=== PATIENT | female | born 1950 | race Caucasian/White ===

== ENCOUNTER → 2016-06-17 | Outpatient (CLI) | payer MEDICARE, BC ==
--- NOTE | 2016-06-17 17:57 | WOMENS IMAGING REPORT ---
EXAM DESCRIPTION: 3D SCREENING MAMMO BILAT COMPLETED DATE/TIME: 06/17/2016 11:13 am REASON FOR STUDY: BILAT SCREENING MAMMO 3D Z12.31 ENCNTR SCREEN MAMMOGRAM FOR MALIGNANT NEOPLASM OF [place] COMPARISON: Multiple since 2008 TECHNIQUE: Standard craniocaudal and mediolateral oblique views of each breast recorded using digita l acquisition and breast tomosynthesis. LIMITATIONS: None. FINDINGS: No masses, calcifications or architectural distortion. No areas of suspicion. Read with the assistance of CAD. .[facility] - R2 Cenova Version 1.3 .[facility] - R2 Cenova Version 1.3 .[facility] Imaging - R2 Cenova Version 2.4 .[facility] [place] - R2 Cenova Version 2.4 .[facility] - R2 White Lead Filterer Version 9.2 BREAST DENSITY: b. There are scattered areas of fibroglandular density. BIRAD: 1 NEGATIVE RECOMMENDATION: ROUTINE SCREENING COMMENT: PATIENT NOTIFIED BY LETTER. The [employer] recommends an annual screening mammogram for women aged 40 years or over. Each patient will receive a reminder prior to the anniversary date of her mammogram. The [employer] (ACR) has developed recommendations for screening MRI of the breast s in certain patient populations, to be used in conjunction with mammography. Breast MRI surveillanc e may be appropriate for women with more than 20% lifetime risk of developing breast cancer as deter mined by genetic testing, significant family history of the disease, or history of mantle radiation f or Hodgkins Disease. ACR Practice Guidelines 2008. DBT Technology DBT is a type of tomographic mammography. With conventional mammography, overlapping breast tissue ma y make lesions difficult to detect, even with good compression. DBT uses an x-ray tube that rotates a round the breast, taking images at different angles. These images are then combined to create thin sl ices of the breast that the radiologist can view as a 3D reconstruction. The [employer] unit can perform full-field digital mammograms (2D imaging); or DBT (3D imaging); or both, in a combination mode that quickly performs both the mammogram and the tomosynthesis scan while the breast is still compressed. PQRS 6045F: Fluoroscopic imaging is not utilized for breast tomosynthesis. TECHNICAL DOCUMENTATION: FINDING NUMBER: (1) ASSESSMENT: (1) JOB ID: [id number] [employer]- All Rights Reserved
== END ==
LOC: WI 10:54
PROVIDERS: ATTEND Nurse Practitioner Family
DX: Z12.31 Encounter for screening mammogram for malignant neoplasm of breast (principal)
CPT/HCPCS: 77063; G0202; 77067

== ENCOUNTER → 2017-08-04 | Outpatient (CLI) | payer MEDICARE, BC ==
--- NOTE | 2017-08-07 10:23 | WOMENS IMAGING REPORT ---
EXAM DESCRIPTION: 3D SCREENING MAMMO BILAT COMPLETED DATE/TIME: 08/04/2017 10:52 am REASON FOR STUDY: ROUTINE SCREENING; Z12.31 Z12.31 ENCNTR SCREEN MAMMOGRAM FOR MALIGNANT NEOPLASM O F [place] COMPARISON: Digital tomosynthesis bilateral screening mammogram dated 06/17/2016 and digital bilateral screening mammograms dated 09/18/2014 and 11/23/2012. TECHNIQUE: Standard craniocaudal and mediolateral oblique views of each breast recorded using digita l acquisition and breast tomosynthesis. LIMITATIONS: None. FINDINGS: RIGHT BREAST MASSES: No suspicious masses. CALCIFICATIONS: No new or suspicious calcifications. ARCHITECTURAL DISTORTION: None. DEVELOPING DENSITY: None. ASYMMETRY: None noted. OTHER: No other significant findings. LEFT BREAST MASSES: No suspicious masses. CALCIFICATIONS: No new or suspicious calcifications. ARCHITECTURAL DISTORTION: None. DEVELOPING DENSITY: None. ASYMMETRY: Asymmetry in the mid breast, best seen on the LCC view, mid-posterior depth. OTHER: No other significant findings. Read with the assistance of CAD. .[facility] - R2 Cenova Version 1.3 .[facility] Imaging - R2 Cenova Version 1.3 .[facility] Imaging - R2 Cenova Version 2.4 .[facility] - R2 Cenova Version 2.4 .[facility] - R2 Powder Nipper Version 9.2 IMPRESSION: 1 Left breast asymmetry. BREAST DENSITY: b. There are scattered areas of fibroglandular density. BIRAD: 0 Incomplete: Needs Additional Imaging Evaluation and/or prior Mammograms for Comparison. RECOMMENDATION: RECOMMENDED FOLLOW-UP: 1. Left breast ultrasound. The patient will be contacted for additional imaging. COMMENT: The patient has been notified of the results by letter per SA requirements. Additional no tification policies are in place for contacting patient with suspicious or incomplete findings. Quality ID #[id number]: The [employer] recommends an annual screening mammogram for women aged 40 years or over. This facility utilizes a reminder system to ensure that all patients receive reminder letters, and/or direct phone calls for appointments. This includes reminders for routine scr eening mammograms, diagnostic mammograms, or other Breast Imaging Interventions when appropriate. Th is patient will be placed in the appropriate reminder system. The [employer] (ACR) has developed recommendations for screening MRI of the breast s in certain patient populations, to be used in conjunction with mammography. Breast MRI surveillanc e may be appropriate for women with more than 20% lifetime risk of developing breast cancer as deter mined by genetic testing, significant family history of the disease, or history of mantle radiation f or Hodgkins Disease. ACR Practice Guidelines 2008. DBT Technology DBT is a type of tomographic mammography. With conventional mammography, overlapping breast tissue ma y make lesions difficult to detect, even with good compression. DBT uses an x-ray tube that rotates a round the breast, taking images at different angles. These images are then combined to create thin sl ices of the breast that the radiologist can view as a 3D reconstruction. The [employer] unit can perform full-field digital mammograms (2D imaging); or DBT (3D imaging); or both, in a combination mode that quickly performs both the mammogram and the tomosynthesis scan while the breast is still compressed. PQRS 6045F: Fluoroscopic imaging is not utilized for breast tomosynthesis. TECHNICAL DOCUMENTATION: FINDING NUMBER: (1) ASSESSMENT: (1) JOB ID: [id number] [employer]- All Rights Reserved Reading location - IP/workstation name: [email or web address]
== END ==
LOC: WI 10:00
PROVIDERS: ATTEND Nurse Practitioner Community Health
DX: Z12.31 Encounter for screening mammogram for malignant neoplasm of breast (principal); N64.89 Other specified disorders of breast
CPT/HCPCS: 77063; 77067

== ENCOUNTER → 2017-08-11 | Outpatient (CLI) | payer MEDICARE, BC ==
--- NOTE | 2017-08-11 12:38 | WOMENS IMAGING REPORT ---
EXAM DESCRIPTION: U/S BREAST UNILAT LIMITED COMPLETED DATE/TIME: 08/11/2017 11:23 am REASON FOR STUDY: R92.0 R92.2 INCONCLUSIVE MAMMOGRAM COMPARISON: Mammograms dated 08/04/2017 TECHNIQUE: Real-time and static grayscale imaging performed of the left breast targeted to the area of clinical/mammographic concern. Selected color Doppler images recorded. LIMITATIONS: None. FINDINGS: MASS: No mass identified. Normal glandular tissue. OTHER: No other significant finding. IMPRESSION: No suspicious findings detected by ultrasound. BIRAD: 1 Negative. RECOMMENDATION: RECOMMENDED FOLLOW-UP: Follow-up as clinically indicated. COMMENT: The [employer] (ACR) has developed recommendations for screening MRI of the breasts in certain patient populations, to be used in conjunction with mammography. Breast MRI s urveillance may be appropriate for women with more than 20% lifetime risk of developing breast cancer as determined by genetic testing, significant family history of the disease, or history of mantle r adiation for Hodgkins Disease. ACR Practice Guidelines 2008. TECHNICAL DOCUMENTATION: JOB ID: [id number] [employer]- All Rights Reserved Reading location - IP/workstation name: [email or web address]
== END ==
LOC: WI 10:16
PROVIDERS: ATTEND Nurse Practitioner Community Health
DX: R92.2 Inconclusive mammogram (principal)
CPT/HCPCS: 76642

== ENCOUNTER → 2018-09-20 | Outpatient (CLI) | payer MEDICARE, BC ==
[2018-09-20 10:57] LABS: ABSOLUTE EOSINOPHILS # (AUTO) 0.1 10^3/uL (0.0-0.6); ABSOLUTE LYMPHOCYTES (AUTO) 1.8 10^3/uL (0.5-4.7); ABSOLUTE MONOCYTES (AUTO) 0.4 10^3/uL (0.1-1.4); ABSOLUTE NEUT (AUTO) 3.2 10^3/uL (1.7-8.2); BASOPHILS % (AUTO) 0.8 % (0-2); HEMATOCRIT 36.9 % (36.0-47.0); HEMOGLOBIN 12.6 g/dL (12.0-15.5); LYMPHOCYTES % (AUTO) 32.4 % (13-45); MEAN CORPUSCULAR HEMOGLOBIN 30.3 pg (27.0-33.4); MEAN CORPUSCULAR HGB CONC 34.1 g/dL (32.0-36.0); MEAN CORPUSCULAR VOLUME 89 fl (80-97); MONOCYTES % (AUTO) 7.5 % (3-13); PLATELET COUNT 282 10^3/uL (150-450); RED BLOOD COUNT 4.16 10^6/uL (3.72-5.28); RED CELL DISTRIBUTION WIDTH 13.4 % (11.5-14.0); SEGMENTED NEUTROPHILS % (AUTO) 57.3 % (42-78); TOTAL CELLS COUNTED % (AUTO) 100 %; WHITE BLOOD COUNT 5.7 10^3/uL (4.0-10.5)
[2018-09-20 11:20] LABS: ALANINE AMINOTRANSFERASE 24 U/L (9-52); ALBUMIN 4.1 g/dL (3.5-5.0); ALKALINE PHOSPHATASE 97 U/L (38-126); ANION GAP 6 (5-19); ASPARTATE AMINO TRANSFERASE 28 U/L (14-36); BILIRUBIN,DIRECT 0.2 mg/dL (0.0-0.4); BILIRUBIN,TOTAL 0.5 mg/dL (0.2-1.3); BLOOD UREA NITROGEN 10 mg/dL (7-20); C-REACTIVE PROTEIN 5.8 mg/L (<10.0); CALCIUM 10.1 mg/dL (8.4-10.2); CARBON DIOXIDE 27 mmol/L (22-30); CHLORIDE 104 mmol/L (98-107); CREATINE KINASE 184 U/L (30-135); GLUCOSE 99 mg/dL (75-110); POTASSIUM 4.9 mmol/L (3.6-5.0); SODIUM 136.6 mmol/L (137-145)
[2018-09-20 11:38] LABS: ERYTHROCYTE SEDIMENTATION RATE 19 mm/hr (0-30)
== END ==
LOC: LAB 10:28
DX: R07.9 Chest pain, unspecified (principal)
CPT/HCPCS: 36415; 80053; 82550; 84484; 85025; 85652; 86140

== ENCOUNTER → 2018-10-25 | Outpatient (CLI) | payer MEDICARE, BC ==
--- NOTE | 2018-10-25 11:22 | WOMENS IMAGING REPORT ---
EXAM DESCRIPTION: 3D SCREENING MAMMO BILAT COMPLETED DATE/TIME: 10/25/2018 10:37 am REASON FOR STUDY: ROUTINE BILATERAL SCREENING;Z12.31 COMPARISON: [id number] EXAM PARAMETERS: Views: Standard craniocaudal and mediolateral oblique views of each breast recorded using digital acquisition and breast tomosynthesis. Read with the assistance of CAD. .[facility] - R2 [employer] Crusher Version 9.2 LIMITATIONS: None. FINDINGS: No suspicious masses, suspicious calcifications or architectural distortion. No areas of c oncern. IMPRESSION: Assessment: Negative MAMMOGRAM. BIRADS 1. BREAST DENSITY: b. There are scattered areas of fibroglandular density. BIRAD: 1 NEGATIVE RECOMMENDATION: ROUTINE SCREENING COMMENT: The patient has been notified of the results by letter per SA requirements. Additional no tification policies are in place for contacting patient with suspicious or incomplete findings. Quality ID #[id number]: The [employer] recommends an annual screening mammogram for women aged 40 years or over. This facility utilizes a reminder system to ensure that all patients receive reminder letters, and/or direct phone calls for appointments. This includes reminders for routine scr eening mammograms, diagnostic mammograms, or other Breast Imaging Interventions when appropriate. Th is patient will be placed in the appropriate reminder system. TECHNICAL DOCUMENTATION: FINDING NUMBER: (1) ASSESSMENT: (1) JOB ID: [id number] [employer]- All Rights Reserved Reading location - IP/workstation name: [email or web address]
== END ==
LOC: WI 09:53
PROVIDERS: ATTEND Physician Assistant
DX: Z12.31 Encounter for screening mammogram for malignant neoplasm of breast (principal)
CPT/HCPCS: 77063; 77067